=== PATIENT | male | born 1950 | race American Indian/Alaskan Native ===

== ENCOUNTER 2019-12-09 09:25 | Emergency (ER) | payer BC, MEDICARE ==
[2019-12-09 09:49] VITALS: BP 127/66
--- NOTE | 2019-12-09 10:17 | Emergency Department Report ---
HPI - General Chief Complaint: Extremity Injury, Lower Time Seen by Provider: 12/09/19 10:06 - HPI HPI: 69-year-old -Filipino male presents to the emergency department with the complaint of atraumatic right foot pain to the bottom midfoot is benign on for the past 1-2 weeks. They feel that the foot is slightly swollen. He has tried some Tylenol for his symptoms with some transient relief. He has a past medical history of hypertension, chronic kidney disease and high cholesterol. No actual primary care physician but occasionally will get care at the [facility]. No recent travel or sick contacts at home. The pain worsens when he is moving the foot or bearing weight. ED Past Medical Hx - Past Medical History Previous Medical History?: Yes Hx Hypertension: Yes Additional medical history: stage 3 kidney disease - Surgical History Past Surgical History?: Yes Additional Surgical History: abd surgery - Social History Smoking Status: Never Smoker Substance Use Type: None - Medications Home Medications: Home Medications Medication Instructions Recorded Confirmed Last Taken Type Prednisone [predniSONE 5 mg (6-Day 5 mg PO .TAPER #1 tab.ds.pk 12/09/19 Unknown Rx Pack, 21 Tabs)] ED Review of Systems ROS: Stated complaint: RT FOOT CANT PUT PRESSURE/PAIN Other details as noted in HPI Comment: All other systems reviewed and negative Constitutional: denies: chills, fever Musculoskeletal: joint swelling, arthralgia Skin: denies: rash, lesions Neurological: denies: numbness, paresthesias Physical Exam - Physical Exam Vital Signs: Vital Signs 12/09/19 09:48 Temperature 99.2 F Pulse Rate 51 L Respiratory 18 Rate Blood Pressure 127/66 [Right] O2 Sat by Pulse 99 Oximetry Physical Exam: GENERAL: The patient is well-developed well-nourished. HEENT: Normocephalic. Atraumatic. Patient has moist mucous membranes. EYES: Extraocular motions are intact. NECK: Supple. Trachea is midline. SKIN:Skin is warm and dry. There is mild nonpitting swelling of the right foot. No erythema but it is slightly warm to touch. NEURO: The patient is awake, alert, and oriented. The patient is cooperative. The patient has no focal neurologic deficits. Normal speech. MUSCULOSKELETAL: There is some tenderness to palpation to the plantar right midfoot. There is no limitation range of motion. +2 over 4 dorsalis pedis pulse and capillary refill less than 2 seconds. ED Course Vital Signs 12/09/19 09:48 Temperature 99.2 F Pulse Rate 51 L Respiratory 18 Rate Blood Pressure 127/66 [Right] O2 Sat by Pulse 99 Oximetry ED Medical Decision Making - Lab Data Result diagrams: 12/09/19 10:16 12/09/19 10:16 - Radiology Data Radiology results: image reviewed interpreted by me: X-ray of the right foot does not show any fracture, dislocation, or any other acute process. - Medical Decision Making This patient has some mild swelling and pain to the plantar right midfoot without any obvious trauma or inciting event. X-ray does not show any fracture, dislocation, or any other acute process. Labs show his chronic kidney disease and concern for possible gout with a uric acid level of 10.8. Given the chronic kidney disease, I will use some steroids instead of anti-inflammatories. The patient will use Tylenol as needed for discomfort. He has been given a referral for podiatry and an orthopedist. He will return to the ER with any worsening of his symptoms or any acute distress. - Differential Diagnosis gout, occult fracture, tendinitis, cellulitis Critical Care Time: No Critical care attestation.: If time is entered above; I have spent that time in minutes in the direct care of this critically ill patient, excluding procedure time. ED Disposition Clinical Impression: Right foot pain Gout Qualifiers: Gout site: foot Gout etiology: unspecified cause Chronicity: acute Laterality: right Qualified Code(s): M10.9 - Gout, unspecified CKD (chronic kidney disease) Qualifiers: Chronic kidney disease stage: unspecified stage Qualified Code(s): N18.9 - Chronic kidney disease, unspecified Disposition: - TO HOME OR SELFCARE Is pt being admited?: No Condition: Stable Instructions: Acute Gouty Arthritis (ED), Arthralgia (ED) Additional Instructions: Please follow up with a primary care physician in the next few days. I am given you a referral for a local software designer, Dr. Duarte, as well as a local or thopedist, Dr. Hutson, to follow up regarding your foot pain. Please return to the emergency Department with any worsening of your symptoms or any acute distress. Prescriptions: Prednisone [predniSONE 5 mg (6-Day Pack, 21 Tabs)] 5 mg PO .TAPER #1 tab.ds.pk Referrals: PRIMARY CARE, [Primary Care Provider] - 2-3 Days CRISTIANA DUARTE DPM [Staff Physician] - 2-3 Days YOAV HUTSON MD [Staff Physician] - 2-3 Days Forms: Work/School Release Form(ED) Time of Disposition: 11:16
[2019-12-09 10:34] LABS: Basophils # (Auto) 0.1 K/mm3 (0.0-0.1); Basophils % (Auto) 0.7 % (0.0-1.8); Eosinophils % (Auto) 0.2 % (0.0-4.3); Hematocrit 36.6 % (35.5-45.6); Hemoglobin 12.4 gm/dl (11.8-15.2); Lymphocytes # (Auto) 1.3 K/mm3 (1.2-5.4); Lymphocytes % (Auto) 14.1 % (13.4-35.0); Mean Corpuscular HGB Conc 34 % (32-34); Mean Corpuscular Volume 78 fl (84-94); Monocytes # (Auto) 1.3 K/mm3 (0.0-0.8); Monocytes % (Auto) 14.4 % (0.0-7.3); Platelet Count 213 K/mm3 (140-440); Red Blood Count 4.69 M/mm3 (3.65-5.03); Red Cell Distribution Width 15.5 % (13.2-15.2)
--- NOTE | 2019-12-09 10:42 | XRay Report ---
RIGHT FOOT 3 VIEWS INDICATION / CLINICAL INFORMATION: Right midfoot pain and swelling for one week. COMPARISON: None available. FINDINGS: BONES and JOINT(S): No acute fracture or subluxation. No significant arthritis. SOFT TISSUES: No significant abnormality. ADDITIONAL FINDINGS: None. IMPRESSION: No significant abnormality of the right foot. Signer Name: Mark Whitaker MD Signed: 12/09/2019 10:38 AM Workstation Name: [id number]
[2019-12-09 10:59] LABS: Calcium 9.6 mg/dL (8.4-10.2); Uric Acid 10.8 mg/dL (3.5-7.6)
== END 2019-12-09 11:32 | disposition home or self-care (01) ==
LOC: ED 09:25
DX: M25.571 Pain in right ankle and joints of right foot (principal); M10.9 Gout, unspecified; I12.9 Hypertensive chronic kidney disease with stage 1 through stage 4 chronic kidney disease, or unspecified chronic kidney disease; N18.9 Chronic kidney disease, unspecified; Z98.890 Other specified postprocedural states; Z79.899 Other long term (current) drug therapy
CPT/HCPCS: 36415; 80048; 84550; 85025

== ENCOUNTER 2020-04-09 10:04 | Outpatient (CLI) | payer BC, MEDICARE ==
[2020-04-09 11:16] LABS: Hematocrit 34.6 % (35.5-45.6); Hemoglobin 11.4 gm/dl (11.8-15.2); Mean Corpuscular HGB Conc 33 % (32-34); Mean Corpuscular Volume 77 fl (84-94); Platelet Count 265 K/mm3 (140-440); Red Blood Count 4.48 M/mm3 (3.65-5.03); Red Cell Distribution Width 15.8 % (13.2-15.2)
[2020-04-09 11:33] LABS: Bilirubin,Urine NEG (Negative); Blood,Urine NEG (Negative); Color,Urine Yellow (Yellow); Mucus,Urine FEW /HPF; Protein,Urine <15 mg/dL mg/dL (Negative); Urobilinogen,Urine < 2.0 mg/dL (<2.0)
[2020-04-09 11:34] LABS: Calcium 9.3 mg/dL (8.4-10.2)
[2020-04-09 11:51] LABS: Creatinine,Urine 133.4 mg/dL (0.1-20.0); Protein/Creatinine Ratio,Urine 0.07
== END 2020-04-09 10:05 | disposition home or self-care (01) ==
LOC: LAB 10:04
PROVIDERS: ATTEND Internal Medicine Nephrology
DX: I12.9 Hypertensive chronic kidney disease with stage 1 through stage 4 chronic kidney disease, or unspecified chronic kidney disease (principal); N18.3 Chronic kidney disease, stage 3 (moderate)
CPT/HCPCS: 36415; 80048; 81001; 82570; 83970; 84100; 84156; 85027

== ENCOUNTER 2020-06-18 08:59 | Outpatient (CLI) | payer BC, MEDICARE ==
[2020-06-18 09:36] LABS: Basophils # (Auto) 0.1 K/mm3 (0.0-0.1); Eosinophils # (Auto) 0.2 K/mm3 (0.0-0.4); Eosinophils % (Auto) 3.9 % (0.0-4.3); Hematocrit 34.9 % (35.5-45.6); Hemoglobin 11.2 gm/dl (11.8-15.2); Lymphocytes # (Auto) 1.6 K/mm3 (1.2-5.4); Lymphocytes % (Auto) 26.6 % (13.4-35.0); Mean Corpuscular HGB Conc 32 % (32-34); Mean Corpuscular Volume 80 fl (84-94); Monocytes # (Auto) 0.9 K/mm3 (0.0-0.8); Monocytes % (Auto) 14.8 % (0.0-7.3); Platelet Count 208 K/mm3 (140-440); Red Blood Count 4.38 M/mm3 (3.65-5.03); Red Cell Distribution Width 17.4 % (13.2-15.2)
[2020-06-18 09:59] LABS: Albumin 4.4 g/dL (3.9-5); Calcium 9.4 mg/dL (8.4-10.2); Uric Acid 6.4 mg/dL (3.5-7.6)
[2020-06-18 10:45] LABS: Free T4 (Free Thyroxine) 1.25 ng/dL (0.76-1.46)
[2020-06-18 11:31] LABS: Creatinine,Urine 162.1 mg/dL (0.1-20.0); Protein/Creatinine Ratio,Urine 0.06
== END 2020-06-18 09:00 | disposition home or self-care (01) ==
LOC: LAB 08:59
PROVIDERS: ATTEND Internal Medicine Nephrology
DX: N18.3 Chronic kidney disease, stage 3 (moderate) (principal)
CPT/HCPCS: 36415; 80053; 82570; 83970; 84100; 84156; 84439; 84443; 84550; 85025

== ENCOUNTER 2020-09-03 09:04 | Emergency (ER) | payer BC, MEDICARE ==
[2020-09-03 09:14] VITALS: BP 145/86
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
== END 2020-09-03 12:40 | disposition home or self-care (01) ==
LOC: ED 09:04
DX: M25.511 Pain in right shoulder (principal); M79.601 Pain in right arm; I10 Essential (primary) hypertension; Z79.899 Other long term (current) drug therapy; V49.49XA Driver injured in collision with other motor vehicles in traffic accident, initial encounter; Y93.89 Activity, other specified; Y92.488 Other paved roadways as the place of occurrence of the external cause; Y99.8 Other external cause status
CPT/HCPCS: 99283

== ENCOUNTER 2020-09-28 10:02 | Outpatient (CLI) | payer BC ==
[2020-09-28 10:55] LABS: Bilirubin,Urine NEG (Negative); Blood,Urine NEG (Negative); Color,Urine Yellow (Yellow); Mucus,Urine FEW /HPF; Protein,Urine <15 mg/dL mg/dL (Negative); Urobilinogen,Urine < 2.0 mg/dL (<2.0); WBC,Urine < 1.0 /HPF (0.0-6.0)
[2020-09-28 11:01] LABS: Basophils # (Auto) 0.1 K/mm3 (0.0-0.1); Eosinophils # (Auto) 0.2 K/mm3 (0.0-0.4); Eosinophils % (Auto) 2.8 % (0.0-4.3); Hematocrit 33.9 % (35.5-45.6); Hemoglobin 11.2 gm/dl (11.8-15.2); Lymphocytes # (Auto) 1.2 K/mm3 (1.2-5.4); Lymphocytes % (Auto) 18.6 % (13.4-35.0); Mean Corpuscular HGB Conc 33 % (32-34); Mean Corpuscular Volume 80 fl (84-94); Monocytes # (Auto) 0.9 K/mm3 (0.0-0.8); Monocytes % (Auto) 14.4 % (0.0-7.3); Platelet Count 240 K/mm3 (140-440); Red Blood Count 4.25 M/mm3 (3.65-5.03); Red Cell Distribution Width 14.7 % (13.2-15.2)
[2020-09-28 11:09] LABS: Calcium 9.1 mg/dL (8.4-10.2); Uric Acid 9.2 mg/dL (3.5-7.6)
[2020-09-28 14:22] LABS: Creatinine,Urine 210.3 mg/dL (0.1-20.0); Protein/Creatinine Ratio,Urine 0.05
== END 2020-09-28 10:03 | disposition home or self-care (01) ==
LOC: LAB 10:02
PROVIDERS: ATTEND Internal Medicine Nephrology
DX: I12.9 Hypertensive chronic kidney disease with stage 1 through stage 4 chronic kidney disease, or unspecified chronic kidney disease (principal); N18.30 Chronic kidney disease, stage 3 unspecified; M10.9 Gout, unspecified; N25.81 Secondary hyperparathyroidism of renal origin
CPT/HCPCS: 36415; 80048; 81001; 82570; 84100; 84156; 84550; 85025

== ENCOUNTER 2020-12-04 09:42 | Outpatient (CLI) | payer OTHER ==
[2020-12-04 11:05] LABS: Basophils # (Auto) 0.1 K/mm3 (0.0-0.1); Eosinophils # (Auto) 0.2 K/mm3 (0.0-0.4); Eosinophils % (Auto) 2.7 % (0.0-4.3); Hematocrit 35.6 % (35.5-45.6); Hemoglobin 11.4 gm/dl (11.8-15.2); Lymphocytes # (Auto) 1.3 K/mm3 (1.2-5.4); Lymphocytes % (Auto) 22.9 % (13.4-35.0); Mean Corpuscular HGB Conc 32 % (32-34); Mean Corpuscular Volume 81 fl (84-94); Monocytes # (Auto) 0.9 K/mm3 (0.0-0.8); Monocytes % (Auto) 15.9 % (0.0-7.3); Platelet Count 198 K/mm3 (140-440); Red Blood Count 4.41 M/mm3 (3.65-5.03); Red Cell Distribution Width 16.5 % (13.2-15.2)
[2020-12-04 11:07] LABS: Bilirubin,Urine NEG (Negative); Blood,Urine NEG (Negative); Color,Urine Straw (Yellow); Protein,Urine <15 mg/dL mg/dL (Negative); RBC,Urine < 1.0 /HPF (0.0-6.0); Urobilinogen,Urine < 2.0 mg/dL (<2.0)
[2020-12-04 11:25] LABS: Calcium 9.5 mg/dL (8.4-10.2)
[2020-12-04 11:40] LABS: Creatinine,Urine 111.4 mg/dL (0.1-20.0); Protein/Creatinine Ratio,Urine 0.05
== END 2020-12-04 09:43 | disposition home or self-care (01) ==
LOC: LAB 09:42
PROVIDERS: ATTEND Internal Medicine Nephrology
DX: N18.30 Chronic kidney disease, stage 3 unspecified (principal); N25.81 Secondary hyperparathyroidism of renal origin
CPT/HCPCS: 36415; 80048; 81001; 82570; 84100; 84156; 85025

== ENCOUNTER 2020-12-26 22:49 | Emergency (ER) | payer BC, MEDICARE ==
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
[2020-12-27] MEDS ORDERED: EPINEPHrine 1 MG/10 ML SYRINGE ONE (13:14)
[2020-12-27] MEDS ORDERED: SODIUM BICARB 8.4% 50 MEQ/50 ML SYRINGE IV ONE (13:14)
== END 2020-12-27 02:00 ==
LOC: ED 22:49
DX: I46.9 Cardiac arrest, cause unspecified (principal); I10 Essential (primary) hypertension; Z98.890 Other specified postprocedural states; Z79.899 Other long term (current) drug therapy
CPT/HCPCS: 31500; 99285; J0171